=== PATIENT | female | born 1990 | race Caucasian/White ===

== ENCOUNTER 2023-03-01 07:35 | Inpatient (IN) ==
[2023-03-01] MEDS ORDERED: LIDOCAINE 1% LOCAL 20 ML VIAL INFIL PRN (07:55)
[2023-03-01] MEDS ORDERED: OXYTOCIN 30 UNITS/NSS 30 UNITS/500 ML BAG IV PRN (07:55)
--- NOTE | 2023-03-01 07:58 | History & Physical Report ---
"Date of Service March 01, 2023 Assessment & Plan (1) Encounter for induction of labor: Plan: Admit to L&D pitocin arom when appropriate monitor tracing, currently cat 1 Admission and Anticipated Discharge Date Admission Date: March 01, 2023 History of Present Illness Chief Complaint: IOL Primary Care Provider: Karie Abdi DO 32 yo at 40w3d admitted for IOL for post dates. +fm, +ctx, -VB/VD Denies ANGEL, CP, SOB, N/V/D, LE pain. GBS neg, RH- Allergies Allergy/AdvReac Type Severity Reaction Status Date / Time No Known Allergies Allergy Verified 02/21/23 16:10 Home Medications Medication Instructions Recorded Confirmed Type vits no.129-ferrous fum 1 tab PO DAILY 07/09/21 02/21/23 History 27 mg iron-folic acid 800 mcg tablet ( One Daily) famotidine [Pepcid] PO 12/16/21 02/21/23 History Patient History Medical History (Updated 03/01/23 @ 08:03 by Kane Jackman DO) Anxiety HPV (human papilloma virus) infection Miscarriage Screening for STD (sexually transmitted disease) Encounter for routine gynecological examination Counseling for initiation of control method Surgical History H/O tooth extraction Family History Grandfather (Paternal) Prostate cancer Diabetes Kidney disease Anemia Denies family history of Ovarian cancer Myocardial infarction Breast cancer Colorectal cancer Social History (Updated 07/17/22 @ 15:25 by Heidi Holloway, SAMANTHA) Smoking Status: Former smoker Age Started Using Tobacco: 17; Age Quit Using Tobacco: 24; Cigarettes Per Day: 3-4; Second Hand Exposure: No; Do You Dip or Chew Tobacco: No; Tobacco Cessation Education Requested by Patient: No Hx Alcohol Use: No Hx Substance Use: No Preferred Language: [place] Communication Ability: Effective Visual Impairment: No Limitations Hearing Ability: Normal Sr. 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 Skin: warm, dry, intact HEENT: NC/AT, anicteric sclera, conjunctiva without injection, moist mucus membranes Heart: +S1/S2, regular, no m/r/g Lungs: equal air entry bilaterally, no rales/rhonchi/wheezes Abd: +BS, soft, NT/ND, gravid uterus Cervical: fingertip|80|-2| Ext: warm, no clubbing/cyanosis or edema Neuro: speech intact, no facial droop, moving all extremities on command. : FHR baseline 135, moderate variability, accelerations present, decelerations absent Resident Activity Tracking Resident Involvement: Resident Care Provided Care Provided: Adult Hospital Medicine"
[2023-03-01 08:21] LABS: Hematocrit (blood only) 37.6 % (37.0-47.0); Hemoglobin 13.1 g/dl (12.0-16.0); Mean Corpuscular Hemoglobin 29.4 pg (25.0-34.0); Mean Corpuscular Hgb Conc 34.8 g/dL (32.0-36.0); Mean Corpuscular Volume 84.5 fL (80.0-100.0); Mean Platelet Volume 10.4 fL (9.4-12.4); Platelet Count 203 K/uL (130-400); RDW Standard Deviation 42.8 fL (36.4-46.3); Red Blood Count 4.45 M/uL (4.20-5.40); White Blood Count 8.81 K/ul (4.8-10.8)
[2023-03-01] MEDS: OXYTOCIN 30 UNITS/NSS 30 UNITS/500 ML BAG IV PRN (08:58)
[2023-03-01] MEDS: LACTATED RINGER'S 1,000 ML IV PRN ×3 (08:58→20:03)
--- NOTE | 2023-03-01 09:02 | Procedure Note ---
Procedure Note Date of Service March 01, 2023 Note monitoring was used to ensure reassuring status. The patient was verbally consented for placement of a howe for cervical ripening, with discussion of risks, benefits and alternatives. All her questions were answered. Her legs were placed in lithotomy position. A lubricated, gloved hand was used to examine the cervix. A stylet was lubricated and inserted into a howe catheter to give it stiffness, and the howe catheter was then advanced along my fingers until it reached the external cervical os. The howe was then fed forward off of the stylet, which was itself never moved beyond the external os, such that the soft catheter advanced into the uterine cavity outside of the amnion until the balloon was definitely above the internal cervical os. The balloon was then inflated using sterile water to 35cc volume. Gentle traction was used to seat the balloon downward against the internal cervical os. My hand and the stylet were removed from the vagina, and the howe was secured to the patient's leg with a standard howe holding sticker. There was no significant bleeding or leakage of fluid. The heart tones remained reassuring after this process, which the patient tolerated well. Coding
[2023-03-01] MEDS ORDERED: fentaNYL citrate PF 100 MCG/2 ML VIAL ONE (16:44)
[2023-03-01] MEDS ORDERED: fentANYL 2 MCG/ML BUPIVacaine 0.125%-NSS 100ML BAG ONE (16:44)
[2023-03-01] MEDS ORDERED: SODIUM CHLORIDE 0.9% PF INJ 10 ML VIAL ONE (16:44)
[2023-03-01] MEDS ORDERED: ePHEDrine sulfate 50 MG/ML AMP ONE (16:44)
[2023-03-01] MEDS ORDERED: BUPIVACAINE 0.25% PF 30 ML VIAL ONE (16:45)
[2023-03-01] MEDS ORDERED: LIDOCAINE 2%/EPINEPHRINE 1:200,000 20 ML PF ONE (16:45)
--- NOTE | 2023-03-01 16:55 | Anesthesiology Consultation ---
Date of Service March 01, 2023 Assessment & Plan Chart Review Chart Review: Acceptable Risk for Surgery, Patient NOT seen in Pre Admission Testing and Acceptable Risk for Labor Epidural Consults Requested none ASA ASA2 Proposed Anesthesia Anesthesia Type: Labor Epidural and CSE History Height/Weight Height: 5 ft 1 in Weight: 87.997 kg Allergies Allergy/AdvReac Type Severity Reaction Status Date / Time No Known Allergies Allergy Verified 02/21/23 16:10 Medications Home Medications Medication Instructions Recorded Confirmed Last Taken vits no.129-ferrous fum 1 tab PO DAILY 07/09/21 02/21/23 07/09/21 27 mg iron-folic acid 800 mcg tablet ( One Daily) famotidine [Pepcid] PO 12/16/21 02/21/23 Unknown Active Medications Generic Name Dose Route Start Last Admin Trade Name Freq PRN Reason Stop Dose Admin Oxytocin 30 units in 500 mls @ 12 mls/hr 03/01/23 07:55 03/01/23 14:00 Pitocin 30 Units/Nss IV 03/03/23 07:54 0.72 units/hr .Q24H PRN 12 mls/hr Labor Induction/Augmentation Titration Protocol 0.72 UNITS/HR Lactated Ringer's 1,000 mls @ 125 mls/hr 03/01/23 07:55 03/01/23 16:42 Lr IV 03/03/23 07:54 999 mls/hr .Q8H PRN Administration L&D Protocol Protocol Past Medical History Medical History Anxiety HPV (human papilloma virus) infection Miscarriage Screening for STD (sexually transmitted disease) Encounter for routine gynecological examination Counseling for initiation of control method obesity gerd Exercise / Class Metabolic Activity II 4-5 Yardwork/Stairs/Walk up hill Past Family History Family History Grandfather (Paternal) Prostate cancer Diabetes Kidney disease Anemia Denies family history of Ovarian cancer Myocardial infarction Breast cancer Colorectal cancer Past Surgical History Surgical History H/O tooth extraction [place] teeth - 2007 Past Anesthesia History No Hx of Anesthesia Complications and No Family Hx of Anesthesia Complications History of PONV No Hx of PONV and No Hx of Motion Sickness Social History Smoking Status: Former smoker tobacco type: cigarettes Smoking cigarettes per day: 3-4 Do You Dip or Chew Tobacco: No Hx Alcohol Use: No Alcohol type: wine Hx Substance Use: No Physical Exam Vital Signs Last Vital Signs Temp 36.4 C L 03/01/23 14:45 Pulse 91 H 03/01/23 16:05 Resp 18 03/01/23 12:00 BP 159/89 H 03/01/23 16:05 Testing Laboratory Results 03/01/23 08:03 Blood Type O Negative 03/01/23 08:03 Antibody Screen NEGATIVE 03/01/23 08:03
[2023-03-01] MEDS ORDERED: PROMETHAZINE HCL 25 MG in SODIUM CHLORIDE 0.9% 50 ML IV PRN (17:38)
[2023-03-01] MEDS ORDERED: fentaNYL citrate PF 100 MCG/2 ML VIAL EPI PRN (17:38)
[2023-03-01] MEDS ORDERED: NALOXONE HCL 1 MG in SODIUM CHLORIDE 0.9% 1,000 ML IV PRN (17:38)
[2023-03-01] MEDS ORDERED: SODIUM CHLORIDE 0.9% PF INJ 10 ML VIAL EPI PRN (17:38)
[2023-03-01] MEDS ORDERED: fentaNYL citrate PF 100 MCG/2 ML VIAL EPI STA (17:38)
[2023-03-01] MEDS ORDERED: BUPIVACAINE 0.25% PF 30 ML VIAL EPI STA (17:38)
[2023-03-01] MEDS ORDERED: NALOXONE HCL 0.4 MG/1 ML VIAL/CARP IV PRN (17:38)
[2023-03-01] MEDS ORDERED: ePHEDrine sulfate 50 MG/ML AMP IV PRN (17:38)
[2023-03-01] MEDS ORDERED: BUPIVACAINE 0.25% PF 30 ML VIAL EPI PRN (17:38)
[2023-03-01] MEDS ORDERED: ROPIVACAINE 0.5% PF 5 MG/ML 20 ML VIAL EPI PRN (17:38)
[2023-03-01] MEDS ORDERED: SODIUM CHLORIDE 0.9% PF INJ 10 ML VIAL EPI STA (17:38)
[2023-03-01] MEDS ORDERED: LIDOCAINE 2%/EPINEPHRINE 1:200,000 20 ML PF EPI STA (17:38)
[2023-03-01] MEDS ORDERED: NALBUPHINE HCL 5 MG in SYRINGE 0 ML IV PRN (17:38)
[2023-03-01] MEDS ORDERED: LIDOCAINE 2% MPF LOCAL 5 ML VIAL EPI PRN (17:38)
[2023-03-01] MEDS ORDERED: diphenhydrAMINE 50 MG/ML VIAL IV PRN (17:38)
[2023-03-01] MEDS: ONDANSETRON INJ 2 MG/ML 2 ML VIAL IV PRN (21:34)
[2023-03-02] MEDS: fentANYL 2 MCG/ML BUPIVacaine 0.125%-NSS 100ML BAG EPI PRN ×2 (00:14→08:10)
[2023-03-02] MEDS: LACTATED RINGER'S 1,000 ML IV PRN ×2 (04:15→09:52)
--- NOTE | 2023-03-02 06:36 | Labor Progress Brief Note ---
Date of Service March 02, 2023 Subjective Starting to feel pressure intermittently / with contractions Assessment & Plan Admission and Anticipated Discharge Date Admission Date: March 01, 2023 Physical Exam Genitourinary: 9 (swollen a bit anteriorly, thin coach wirer iorly; can reduce either one manually but the other "pops forward" at the same time, so cannot force complete dilation)/100/+1 LOF clear FHT Cat 1 [place] Q2min Results & Data Vital Signs (Past 12 Hours) Vital Signs Temp Pulse Resp BP Pulse Ox O2 Del Method 03/02/23 06:31 121 H 128/80 03/02/23 06:30 130 H 98 03/02/23 06:25 119 H 96 03/02/23 06:20 103 H 96 03/02/23 06:16 106 H 121/74 03/02/23 06:15 103 H 98 03/02/23 06:10 110 H 98 03/02/23 06:05 116 H 98 03/02/23 06:01 110 H 125/78 03/02/23 06:00 97.5 F L 111 H 18 98 03/02/23 05:55 108 H 98 03/02/23 05:50 118 H 98 03/02/23 05:47 100 H 125/75 03/02/23 05:45 107 H 98 03/02/23 05:40 129 H 98 03/02/23 05:35 99 H 98 03/02/23 05:31 106 H 120/74 03/02/23 05:30 111 H 18 98 03/02/23 05:25 107 H 98 03/02/23 05:20 111 H 99 03/02/23 05:16 122 H 132/81 03/02/23 05:15 102 H 96 03/02/23 05:10 105 H 96 03/02/23 05:05 104 H 96 03/02/23 05:01 109 H 126/74 03/02/23 05:00 107 H 16 96 03/02/23 04:55 102 H 96 03/02/23 04:50 101 H 97 03/02/23 04:46 100 H 116/72 03/02/23 04:45 103 H 97 03/02/23 04:40 102 H 97 03/02/23 04:35 102 H 97 03/02/23 04:31 103 H 128/75 03/02/23 04:30 105 H 18 97 03/02/23 04:25 98 H 96 03/02/23 04:20 109 H 97 03/02/23 04:16 113 H 117/68 03/02/23 04:15 111 H 98 03/02/23 04:10 115 H 96 03/02/23 04:05 98.8 F 100 H 96 03/02/23 04:01 102 H 113/59 L 03/02/23 04:00 110 H 20 98 03/02/23 03:55 102 H 98 03/02/23 03:50 115 H 96 03/02/23 03:48 110 H 94 03/02/23 03:46 108 H 116/66 03/02/23 03:45 111 H 95 03/02/23 03:40 107 H 96 03/02/23 03:35 113 H 96 03/02/23 03:32 106 H 119/68 03/02/23 03:30 104 H 16 95 03/02/23 03:26 106 H 94 03/02/23 03:25 105 H 94 03/02/23 03:21 106 H 94 03/02/23 03:20 109 H 95 03/02/23 03:16 107 H 118/61 03/02/23 03:15 105 H 95 03/02/23 03:10 108 H 94 03/02/23 03:09 105 H 94 03/02/23 03:05 107 H 94 03/02/23 03:04 105 H 94 03/02/23 03:01 102 H 119/68 03/02/23 03:00 102 H 94 03/02/23 02:58 104 H 94 03/02/23 02:55 107 H 94 03/02/23 02:51 107 H 94 03/02/23 02:50 103 H 95 03/02/23 02:46 99 H 115/69 03/02/23 02:45 101 H 94 03/02/23 02:44 104 H 94 03/02/23 02:40 101 H 95 03/02/23 02:39 104 H 94 03/02/23 02:35 103 H 95 03/02/23 02:33 103 H 94 03/02/23 02:32 100 H 118/74 03/02/23 02:30 104 H 95 03/02/23 02:25 104 H 96 03/02/23 02:20 100 H 96 03/02/23 02:17 101 H 115/74 03/02/23 02:15 100 H 95 03/02/23 02:13 103 H 94 03/02/23 02:10 99 H 96 03/02/23 02:05 105 H 96 03/02/23 02:01 113 H 135/77 03/02/23 02:00 98.8 F 115 H 20 97 03/02/23 01:55 94 H 95 03/02/23 01:50 89 95 03/02/23 01:46 93 H 116/61 03/02/23 01:45 93 H 95 03/02/23 01:40 91 H 95 03/02/23 01:38 90 94 03/02/23 01:35 87 96 03/02/23 01:32 89 113/61 03/02/23 01:30 93 H 18 95 03/02/23 01:28 92 H 94 03/02/23 01:25 92 H 95 03/02/23 01:20 92 H 96 03/02/23 01:18 88 116/69 03/02/23 01:15 86 96 03/02/23 01:10 86 97 03/02/23 01:05 94 H 95 03/02/23 01:02 94 H 94 03/02/23 01:01 94 H 124/58 L 03/02/23 01:00 94 H 16 95 03/02/23 00:55 99 H 96 03/02/23 00:50 92 H 96 03/02/23 00:47 92 H 120/65 03/02/23 00:45 91 H 95 03/02/23 00:40 95 H 95 03/02/23 00:35 90 97 03/02/23 00:31 90 119/66 03/02/23 00:30 94 H 16 96 03/02/23 00:25 96 H 96 03/02/23 00:20 90 96 03/02/23 00:16 94 H 112/69 03/02/23 00:15 92 H 96 03/02/23 00:10 94 H 96 03/02/23 00:05 97 H 96 03/02/23 00:04 98.6 F 03/02/23 00:02 96 H 123/73 03/02/23 00:00 115 H 18 97 03/01/23 23:55 113 H 96 03/01/23 23:50 109 H 96 03/01/23 23:46 112 H 128/84 03/01/23 23:45 108 H 96 03/01/23 23:40 110 H 96 03/01/23 23:35 114 H 96 03/01/23 23:31 104 H 123/76 03/01/23 23:30 107 H 16 97 03/01/23 23:25 100 H 98 03/01/23 23:20 124 H 98 03/01/23 23:18 121 H 137/83 03/01/23 23:16 132 H 94 03/01/23 23:15 120 H 99 03/01/23 23:10 97 H 97 03/01/23 23:05 98 H 97 03/01/23 23:01 98 H 127/76 03/01/23 23:00 99 H 16 94 03/01/23 22:55 103 H 95 03/01/23 22:50 98 H 97 03/01/23 22:47 101 H 132/75 03/01/23 22:45 95 H 97 03/01/23 22:40 122 H 98 03/01/23 22:35 97 H 96 03/01/23 22:31 103 H 120/75 03/01/23 22:30 93 H 18 96 03/01/23 22:25 98.4 F 98 H 96 03/01/23 22:20 97 H 96 03/01/23 22:17 93 H 126/76 03/01/23 22:15 105 H 96 03/01/23 22:10 106 H 97 03/01/23 22:05 94 H 96 03/01/23 22:02 96 H 135/69 03/01/23 22:00 92 H 18 97 03/01/23 21:55 111 H 96 03/01/23 21:50 109 H 96 03/01/23 21:47 108 H 125/75 03/01/23 21:45 97 H 97 03/01/23 21:40 122 H 97 03/01/23 21:35 123 H 97 03/01/23 21:32 121 H 140/83 03/01/23 21:30 119 H 20 99 03/01/23 21:25 111 H 100 11/23/23 21:20 96 H 99 03/01/23 21:16 82 127/61 03/01/23 21:15 88 96 03/01/23 21:10 87 97 03/01/23 21:05 82 97 03/01/23 21:01 92 H 119/64 03/01/23 21:00 89 18 96 03/01/23 20:55 83 97 03/01/23 20:50 80 97 03/01/23 20:47 86 122/63 03/01/23 20:45 79 97 03/01/23 20:40 98 H 98 03/01/23 20:39 98.4 F 03/01/23 20:35 94 H 98 03/01/23 20:32 93 H 155/91 H 03/01/23 20:30 94 H 18 98 03/01/23 20:25 91 H 98 03/01/23 20:20 97 H 98 03/01/23 20:18 100 H 135/80 03/01/23 20:15 90 99 03/01/23 20:10 95 H 98 03/01/23 20:05 93 H 99 03/01/23 20:02 83 145/78 H 03/01/23 20:00 94 H 18 99 03/01/23 19:55 105 H 98 03/01/23 19:50 84 99 03/01/23 19:48 84 151/84 H 03/01/23 19:45 84 98 03/01/23 19:40 81 97 03/01/23 19:35 84 98 03/01/23 19:32 85 136/91 03/01/23 19:30 75 16 98 03/01/23 19:25 74 98 03/01/23 19:20 105 H 99 03/01/23 19:17 78 143/91 H 03/01/23 19:15 87 96 03/01/23 19:10 Room Air 03/01/23 19:10 97.9 F 77 18 97 03/01/23 19:05 76 98 03/01/23 19:01 86 137/90 03/01/23 19:00 86 98 03/01/23 18:55 93 H 99 03/01/23 18:50 80 97 03/01/23 18:47 76 116/70 03/01/23 18:45 74 98 03/01/23 18:40 77 98 Coding Level of Care Code None
--- NOTE | 2023-03-02 09:37 | Labor Progress Brief Note ---
Date of Service March 02, 2023 Subjective comfortable Assessment & Plan (1) Encounter for induction of labor: Plan begin second stage, fetus reassuring. anticipate . Admission and Anticipated Discharge Date Admission Date: March 01, 2023 Physical Exam Physical Exam: cx--c/c/+1 toco--q2-3min efm--130s wtih mod variability, accels to 150s, rare variable. Results & Data Vital Signs (Past 12 Hours) Vital Signs Temp Pulse Resp BP Pulse Ox 03/02/23 09:33 114 H 94 03/02/23 09:32 100 H 114/66 03/02/23 09:30 101 H 95 03/02/23 09:25 99 H 95 03/02/23 09:20 102 H 95 03/02/23 09:19 102 H 94 03/02/23 09:17 99 H 114/67 03/02/23 09:15 102 H 95 03/02/23 09:10 99 H 95 03/02/23 09:05 106 H 96 03/02/23 09:02 108 H 116/69 03/02/23 09:01 37.3 C 03/02/23 09:00 105 H 96 03/02/23 08:55 116 H 98 03/02/23 08:50 103 H 95 03/02/23 08:47 103 H 121/66 03/02/23 08:45 104 H 96 03/02/23 08:40 110 H 97 03/02/23 08:35 102 H 95 03/02/23 08:31 104 H 126/70 03/02/23 08:30 107 H 16 96 03/02/23 08:25 104 H 95 03/02/23 08:20 105 H 97 03/02/23 08:17 101 H 128/71 03/02/23 08:15 108 H 96 03/02/23 08:10 110 H 96 03/02/23 08:05 112 H 95 03/02/23 08:02 97 H 106/55 L 03/02/23 08:00 95 H 20 95 03/02/23 07:55 102 H 96 03/02/23 07:54 108 H 94 03/02/23 07:50 116 H 96 03/02/23 07:47 108 H 133/79 03/02/23 07:45 108 H 96 03/02/23 07:41 103 H 94 03/02/23 07:40 104 H 95 03/02/23 07:35 104 H 96 03/02/23 07:31 102 H 124/69 03/02/23 07:30 104 H 20 95 03/02/23 07:25 104 H 95 03/02/23 07:20 104 H 95 03/02/23 07:16 108 H 132/75 03/02/23 07:15 37.0 C 18 03/02/23 07:15 109 H 96 03/02/23 07:10 110 H 95 03/02/23 07:06 105 H 127/75 03/02/23 07:05 116 H 95 03/02/23 07:01 110 H 114/72 03/02/23 07:00 108 H 18 95 03/02/23 06:55 103 H 95 03/02/23 06:50 109 H 95 03/02/23 06:46 106 H 128/80 03/02/23 06:45 112 H 95 03/02/23 06:40 129 H 96 03/02/23 06:35 108 H 96 03/02/23 06:31 121 H 128/80 03/02/23 06:30 130 H 20 98 03/02/23 06:25 119 H 96 03/02/23 06:20 103 H 96 03/02/23 06:16 106 H 121/74 03/02/23 06:15 103 H 98 03/02/23 06:10 110 H 98 03/02/23 06:05 116 H 98 03/02/23 06:01 110 H 125/78 03/02/23 06:00 36.4 C L 111 H 18 98 03/02/23 05:55 108 H 98 03/02/23 05:50 118 H 98 03/02/23 05:47 100 H 125/75 03/02/23 05:45 107 H 98 03/02/23 05:40 129 H 98 03/02/23 05:35 99 H 98 03/02/23 05:31 106 H 120/74 03/02/23 05:30 111 H 18 98 03/02/23 05:25 107 H 98 03/02/23 05:20 111 H 99 03/02/23 05:16 122 H 132/81 03/02/23 05:15 102 H 96 03/02/23 05:10 105 H 96 03/02/23 05:05 104 H 96 03/02/23 05:01 109 H 126/74 03/02/23 05:00 107 H 16 96 03/02/23 04:55 102 H 96 03/02/23 04:50 101 H 97 03/02/23 04:46 100 H 116/72 03/02/23 04:45 103 H 97 03/02/23 04:40 102 H 97 03/02/23 04:35 102 H 97 03/02/23 04:31 103 H 128/75 03/02/23 04:30 105 H 18 97 03/02/23 04:25 98 H 96 03/02/23 04:20 109 H 97 03/02/23 04:16 113 H 117/68 03/02/23 04:15 111 H 98 03/02/23 04:10 115 H 96 03/02/23 04:05 37.1 C 100 H 96 03/02/23 04:01 102 H 113/59 L 03/02/23 04:00 110 H 20 98 03/02/23 03:55 102 H 98 03/02/23 03:50 115 H 96 03/02/23 03:48 110 H 94 03/02/23 03:46 108 H 116/66 03/02/23 03:45 111 H 95 03/02/23 03:40 107 H 96 03/02/23 03:35 113 H 96 03/02/23 03:32 106 H 119/68 03/02/23 03:30 104 H 16 95 03/02/23 03:26 106 H 94 03/02/23 03:25 105 H 94 03/02/23 03:21 106 H 94 03/02/23 03:20 109 H 95 03/02/23 03:16 107 H 118/61 03/02/23 03:15 105 H 95 03/02/23 03:10 108 H 94 03/02/23 03:09 105 H 94 03/02/23 03:05 107 H 94 03/02/23 03:04 105 H 94 03/02/23 03:01 102 H 119/68 03/02/23 03:00 102 H 94 03/02/23 02:58 104 H 94 03/02/23 02:55 107 H 94 03/02/23 02:51 107 H 94 03/02/23 02:50 103 H 95 03/02/23 02:46 99 H 115/69 03/02/23 02:45 101 H 94 03/02/23 02:44 104 H 94 03/02/23 02:40 101 H 95 03/02/23 02:39 104 H 94 03/02/23 02:35 103 H 95 03/02/23 02:33 103 H 94 03/02/23 02:32 100 H 118/74 03/02/23 02:30 104 H 95 03/02/23 02:25 104 H 96 03/02/23 02:20 100 H 96 03/02/23 02:17 101 H 115/74 03/02/23 02:15 100 H 95 03/02/23 02:13 103 H 94 03/02/23 02:10 99 H 96 03/02/23 02:05 105 H 96 03/02/23 02:01 113 H 135/77 03/02/23 02:00 37.1 C 115 H 20 97 03/02/23 01:55 94 H 95 03/02/23 01:50 89 95 03/02/23 01:46 93 H 116/61 03/02/23 01:45 93 H 95 03/02/23 01:40 91 H 95 03/02/23 01:38 90 94 03/02/23 01:35 87 96 03/02/23 01:32 89 113/61 03/02/23 01:30 93 H 18 95 03/02/23 01:28 92 H 94 03/02/23 01:25 92 H 95 03/02/23 01:20 92 H 96 03/02/23 01:18 88 116/69 03/02/23 01:15 86 96 03/02/23 01:10 86 97 03/02/23 01:05 94 H 95 03/02/23 01:02 94 H 94 03/02/23 01:01 94 H 124/58 L 03/02/23 01:00 94 H 16 95 03/02/23 00:55 99 H 96 03/02/23 00:50 92 H 96 03/02/23 00:47 92 H 120/65 03/02/23 00:45 91 H 95 03/02/23 00:40 95 H 95 03/02/23 00:35 90 97 03/02/23 00:31 90 119/66 03/02/23 00:30 94 H 16 96 03/02/23 00:25 96 H 96 03/02/23 00:20 90 96 03/02/23 00:16 94 H 112/69 03/02/23 00:15 92 H 96 03/02/23 00:10 94 H 96 03/02/23 00:05 97 H 96 03/02/23 00:04 37.0 C 03/02/23 00:02 96 H 123/73 03/02/23 00:00 115 H 18 97 03/01/23 23:55 113 H 96 03/01/23 23:50 109 H 96 03/01/23 23:46 112 H 128/84 03/01/23 23:45 108 H 96 03/01/23 23:40 110 H 96 03/01/23 23:35 114 H 96 03/01/23 23:31 104 H 123/76 03/01/23 23:30 107 H 16 97 03/01/23 23:25 100 H 98 03/01/23 23:20 124 H 98 03/01/23 23:18 121 H 137/83 03/01/23 23:16 132 H 94 03/01/23 23:15 120 H 99 03/01/23 23:10 97 H 97 03/01/23 23:05 98 H 97 03/01/23 23:01 98 H 127/76 03/01/23 23:00 99 H 16 94 03/01/23 22:55 103 H 95 03/01/23 22:50 98 H 97 03/01/23 22:47 101 H 132/75 03/01/23 22:45 95 H 97 03/01/23 22:40 122 H 98 03/01/23 22:35 97 H 96 03/01/23 22:31 103 H 120/75 03/01/23 22:30 93 H 18 96 03/01/23 22:25 36.9 C 98 H 96 03/01/23 22:20 97 H 96 03/01/23 22:17 93 H 126/76 03/01/23 22:15 105 H 96 03/01/23 22:10 106 H 97 03/01/23 22:05 94 H 96 03/01/23 22:02 96 H 135/69 03/01/23 22:00 92 H 18 97 03/01/23 21:55 111 H 96 03/01/23 21:50 109 H 96 03/01/23 21:47 108 H 125/75 03/01/23 21:45 97 H 97 03/01/23 21:40 122 H 97 Coding Level of Care Code None Diagnoses Encounter for induction of labor Z34.90
[2023-03-02] MEDS: ONDANSETRON INJ 2 MG/ML 2 ML VIAL IV PRN (09:52)
[2023-03-02] MEDS ORDERED: METHYLERGONOVINE MALEATE 0.2 MG/ML AMP ONE (11:23)
[2023-03-02] MEDS ORDERED: miSOPROStoL 200 MCG TAB ONE (11:25)
[2023-03-02] MEDS: OXYTOCIN 30 UNITS/NSS 30 UNITS/500 ML BAG IV PRN (11:30)
--- NOTE | 2023-03-02 11:37 | Delivery Summary ---
Vaginal Delivery Summary Date of Service March 02, 2023 Vaginal Delivery Summary and 2nd Degree LAC Pre-operative Diagnosis: at 40 weeks postdates induction Post-operative Diagnosis: same Procedure: howe bulb for cervical ripening pitocin epidural second degree laceration and repair EBL: 500cc Anesthesia: epidural Procedure: The patient pushed for about 90 minutes to deliver a viable female infant in quyen position. The nose and mouth were bulb suctioned on the perineum, a large gush of meconium was noted after delivery of the head and the rest of the was then delivered without difficulty. The baby delivered through a loose nuchal cord. The baby was vigorous. The nose and mouth were again bulb suctioned and the was placed in the maternal abdomen for drying and attention. Cord was clamped and cut at 30 secs of life. Cord blood and segment obtained. Placenta delivered spontaneous, intact with a three vessel cord. Cervix/sulci/rectum were intact. A second degree perineal laceration was repaired in the normal standard fashion. Hemostasis obtained with dilute pitocin and fundal massage, IM methergine and rectal cytotec. Apgars were 7/9. Mother and baby doing well at the end of the delivery. [facility] [place] Vaginal Delivery Charge Delivery Type Details: and 2nd Degree LAC
[2023-03-02] MEDS ORDERED: METHYLERGONOVINE MALEATE 0.2 MG/ML AMP IM ONE (11:40)
[2023-03-02] MEDS ORDERED: DIPHTHERIA/TETANUS/PERTUSSIS Vaccine (Tdap, Age 7+yrs) 0.5mL SYR/VL IM ONE (11:40)
[2023-03-02] MEDS ORDERED: oxyCODONE/ACETAMINOPHEN 5mg/325mg TAB PO PRN (11:40)
[2023-03-02] MEDS ORDERED: OXYTOCIN 30 UNITS/NSS 30 UNITS/500 ML BAG IV PRN (11:40)
[2023-03-02] MEDS ORDERED: ACETAMINOPHEN 325 MG TAB PO PRN (11:40)
[2023-03-02] MEDS ORDERED: HYDROCORTISONE ACETATE 25 MG SUPP PR PRN (11:40)
[2023-03-02] MEDS ORDERED: miSOPROStoL 200 MCG TAB PR ONE (11:40)
[2023-03-02] MEDS ORDERED: bisacodyL 10 MG SUPP PR PRN (11:40)
[2023-03-02] MEDS ORDERED: BENZOCAINE 20% SPRY 85 APPLN/85 GM CAN EXT PRN (11:40)
--- NOTE | 2023-03-02 13:02 | Anesthesia Procedure Note ---
Date of Service March 02, 2023 Anesthesia Post Epidural Note Vital Signs Vital Signs: Temp Pulse Resp BP Pulse Ox O2 Del Method 37.3 C 96 H 16 161/81 H 95 Room Air 03/02/23 09:01 03/02/23 13:00 03/02/23 12:15 03/02/23 13:00 03/02/23 11:30 03/01/23 19:10 Pain Intensity Rectal: Pain Intensity: 4 Notes Mental Status: alert / awake / arousable Nausea / Vomiting: adequately controlled Pain: adequately controlled Airway Patency, RR, SpO2: stable & adequate BP & HR: stable & adequate Hydration State: stable & adequate Neuraxial Anesthesia: was administered and sensory block is resolving Anesthetic Complications: no major complications apparent Epidural: Removed without complications and With tip intact
[2023-03-02] MEDS: IBUPROFEN 600 MG TAB PO PRN ×2 (17:25→20:55)
[2023-03-02 17:33] LABS: Hematocrit (blood only) 35.2 % (37.0-47.0); Hemoglobin 12.2 g/dl (12.0-16.0); Mean Corpuscular Hemoglobin 30.2 pg (25.0-34.0); Mean Corpuscular Hgb Conc 34.7 g/dL (32.0-36.0); Mean Corpuscular Volume 87.1 fL (80.0-100.0); Mean Platelet Volume 10.8 fL (9.4-12.4); Platelet Count 199 K/uL (130-400); RDW Coefficient of Variation 14.4 % (11.5-14.5); RDW Standard Deviation 45.2 fL (36.4-46.3); Red Blood Count 4.04 M/uL (4.20-5.40); White Blood Count 24.67 K/ul (4.8-10.8)
[2023-03-02 17:50] LABS: Albumin Globulin Ratio 1.1 (0.9-2); BUN Creatinine Ratio 11.9 (10-20); Bilirubin,Total 0.5 mg/dl (0.2-1.0); Calcium 8.9 mg/dl (8.6-10.3); Creatinine Clr Calc Pharmacy 68.4 ml/min; Est GFR (African American) 70.2 ml/min; Est GFR (Non-African American) 60.5 ml/min; Globulin 2.7 gm/dl (2.5-4.0); Potassium 3.9 mmol/L (3.5-5.1); Total Protein 5.7 gm/dl (6.0-8.3)
--- NOTE | 2023-03-02 20:24 | Obstetrical Progress Note ---
Date of Service March 02, 2023 Assessment & Plan (1) Elevated blood pressure reading: Plan Patient has some elevated blood pressures since delivery. No s/s of pet and labs are wnl. Will continue to monitor blood pressures closely. Plan to start antihypertensives if pressures remain >140/90. Patient expresses understanding. Subjective ctsp because of mildly elevated blood pressures. She notes some uterine cramping but otherwise feeling well. no s/s of pet. Of note, patient had some mildly elevated pressures on admission which resolved with epidural. Pressures have been 150s/161 / 80s-98. Physical Exam Constitutional WD/WN, vitals as above Cardiovascular Extremities: + edema (tr); no calf tenderness Gastrointestinal (Abdomen) soft, nt, no ruq pain Neurologic patellar DTR's 2+ bilat, sensation intact (no clonus ) Results & Data Vital Signs (Past 12 Hours) Vital Signs Temp Pulse Pulse Pulse Resp BP BP 03/02/23 19:03 36.5 C 92 H 20 134/90 03/02/23 17:00 144/98 H 03/02/23 15:35 37.5 C 92 H 18 151/97 H 03/02/23 13:26 87 158/84 H 03/02/23 13:15 37.3 C 20 03/02/23 13:15 104 H 152/78 H 03/02/23 13:00 96 H 161/81 H 03/02/23 12:45 16 03/02/23 12:45 93 H 160/83 H 03/02/23 12:30 97 H 161/86 H 03/02/23 12:15 16 03/02/23 12:15 87 158/81 H 03/02/23 12:07 93 H 159/86 H 03/02/23 12:03 16 03/02/23 12:03 99 H 154/90 H 03/02/23 11:45 18 03/02/23 11:45 109 H 143/82 H 03/02/23 11:30 03/02/23 11:30 119 H 03/02/23 11:30 124 H 03/02/23 11:29 16 03/02/23 11:29 111 H 134/67 03/02/23 11:25 03/02/23 11:25 112 H 03/02/23 11:25 115 H 134/62 03/02/23 11:20 120 H 03/02/23 11:16 130 H 144/84 H 03/02/23 11:15 133 H 03/02/23 11:10 20 03/02/23 11:10 122 H 20 03/02/23 11:05 124 H 03/02/23 11:04 114 H 134/73 03/02/23 11:00 03/02/23 11:00 129 H 03/02/23 11:00 124 H 03/02/23 10:55 119 H 20 03/02/23 10:54 126 H 03/02/23 10:50 129 H 03/02/23 10:46 118 H 128/65 03/02/23 10:45 125 H 03/02/23 10:44 129 H 03/02/23 10:40 123 H 22 03/02/23 10:37 137 H 03/02/23 10:35 121 H 03/02/23 10:32 152 H 03/02/23 10:31 125 H 127/63 03/02/23 10:30 143 H 03/02/23 10:25 22 03/02/23 10:25 22 03/02/23 10:25 03/02/23 10:25 145 H 03/02/23 10:25 117 H 03/02/23 10:20 131 H 03/02/23 10:17 127 H 128/78 03/02/23 10:15 121 H 03/02/23 10:14 117 H 03/02/23 10:10 123 H 03/02/23 10:09 117 H 03/02/23 10:05 120 H 03/02/23 10:03 123 H 03/02/23 10:02 127 H 130/77 03/02/23 10:00 123 H 03/02/23 09:57 126 H 03/02/23 09:55 120 H 03/02/23 09:51 127 H 03/02/23 09:50 115 H 03/02/23 09:48 127 H 130/87 03/02/23 09:45 141 H 03/02/23 09:40 130 H 03/02/23 09:35 116 H 03/02/23 09:33 114 H 03/02/23 09:32 100 H 114/66 03/02/23 09:30 101 H 20 03/02/23 09:25 99 H 03/02/23 09:20 102 H 03/02/23 09:19 102 H 03/02/23 09:17 99 H 114/67 03/02/23 09:15 102 H 03/02/23 09:10 99 H 03/02/23 09:05 106 H 03/02/23 09:02 108 H 116/69 03/02/23 09:01 37.3 C 03/02/23 09:00 105 H 03/02/23 08:55 116 H 03/02/23 08:50 103 H 03/02/23 08:47 103 H 121/66 03/02/23 08:45 104 H 03/02/23 08:40 110 H 03/02/23 08:35 102 H 03/02/23 08:31 104 H 126/70 03/02/23 08:30 107 H 16 03/02/23 08:25 104 H Pulse Ox O2 Del Method 03/02/23 19:03 95 Room Air 03/02/23 17:00 03/02/23 15:35 Room Air 03/02/23 13:26 03/02/23 13:15 03/02/23 13:15 03/02/23 13:00 03/02/23 12:45 03/02/23 12:45 03/02/23 12:30 03/02/23 12:15 03/02/23 12:15 03/02/23 12:07 03/02/23 12:03 03/02/23 12:03 03/02/23 11:45 03/02/23 11:45 03/02/23 11:30 95 03/02/23 11:30 03/02/23 11:30 94 03/02/23 11:29 03/02/23 11:29 03/02/23 11:25 96 03/02/23 11:25 03/02/23 11:25 94 03/02/23 11:20 96 03/02/23 11:16 03/02/23 11:15 94 03/02/23 11:10 03/02/23 11:10 94 03/02/23 11:05 95 03/02/23 11:04 03/02/23 11:00 96 03/02/23 11:00 03/02/23 11:00 94 03/02/23 10:55 95 03/02/23 10:54 92 03/02/23 10:50 96 03/02/23 10:46 03/02/23 10:45 95 03/02/23 10:44 94 03/02/23 10:40 96 03/02/23 10:37 91 03/02/23 10:35 94 03/02/23 10:32 94 03/02/23 10:31 03/02/23 10:30 96 03/02/23 10:25 03/02/23 10:25 03/02/23 10:25 97 03/02/23 10:25 03/02/23 10:25 88 L 03/02/23 10:20 96 03/02/23 10:17 03/02/23 10:15 96 03/02/23 10:14 89 L 03/02/23 10:10 97 03/02/23 10:09 93 03/02/23 10:05 92 03/02/23 10:03 80 L 03/02/23 10:02 03/02/23 10:00 97 03/02/23 09:57 91 03/02/23 09:55 92 03/02/23 09:51 91 03/02/23 09:50 96 03/02/23 09:48 03/02/23 09:45 96 03/02/23 09:40 97 03/02/23 09:35 98 03/02/23 09:33 94 03/02/23 09:32 03/02/23 09:30 95 03/02/23 09:25 95 03/02/23 09:20 95 03/02/23 09:19 94 03/02/23 09:17 03/02/23 09:15 95 03/02/23 09:10 95 03/02/23 09:05 96 03/02/23 09:02 03/02/23 09:01 03/02/23 09:00 96 03/02/23 08:55 98 03/02/23 08:50 95 03/02/23 08:47 03/02/23 08:45 96 03/02/23 08:40 97 03/02/23 08:35 95 03/02/23 08:31 03/02/23 08:30 96 03/02/23 08:25 95
[2023-03-02] MEDS: DOCUSATE SODIUM 100 MG CAP PO SCH (20:56)
[2023-03-03] MEDS: IBUPROFEN 600 MG TAB PO PRN ×4 (04:37→23:58)
--- NOTE | 2023-03-03 07:48 | Obstetrical Progress Note ---
Date of Service March 03, 2023 Assessment & Plan (1) Encounter for assessment: visit type: exam and care immediately after delivery Qualified Code(s): Z39.0 - Encounter for care and examination of mother immed iately after delivery (2) Elevated blood pressure reading: Plan Doing well. Routine care. bps much better since last evening, will monitor through day. May want d/c later today. Day #:: 1 Subjective Ambulation: ambulating normally Voiding: no voiding problems Passing Gas:: Yes Diet Tolerance:: regular diet Lochia:: Small Feeding Type:: breast feeding Feels well. no s/s of pet. Last few pressures have been better. Physical Exam Constitutional WD/WN, vitals as above Cardiovascular Extremities: + edema (tr); no calf tenderness Gastrointestinal (Abdomen) soft, nt, nd ff/nt 1 below u Results & Data Vital Signs (Past 12 Hours) Vital Signs Temp Pulse Resp BP BP Pulse Ox O2 Del Method 03/03/23 04:27 36.5 C 72 18 111/74 97 Room Air 03/02/23 23:25 36.7 C 78 18 135/84 96 Room Air
[2023-03-03] MEDS: PRENATAL VITAMIN 1 TAB PO SCH (08:47)
[2023-03-03] MEDS: DOCUSATE SODIUM 100 MG CAP PO SCH ×2 (08:47→20:09)
[2023-03-03 09:45] LABS: Hematocrit (blood only) 32.8 % (37.0-47.0); Hemoglobin 11.3 g/dl (12.0-16.0)
[2023-03-03] MEDS ORDERED: bisacodyL 5 MG TABEC PO SCH (20:00)
[2023-03-04] MEDS: IBUPROFEN 600 MG TAB PO PRN (05:45)
--- NOTE | 2023-03-04 07:32 | Obstetrical Progress Note ---
Date of Service March 04, 2023 Assessment & Plan (1) Encounter for assessment: PPD 2, no ext pain. home visit type: exam and care immediately after delivery Qualified Code(s): Z39.0 - Encounter for care and examination of mother immediately after delivery Subjective Ambulation: ambulating normally Voiding: no voiding problems Passing Gas:: Yes Diet Tolerance:: regular diet Lochia:: Small Physical Exam Constitutional WD/WN, vitals as above well developed and well nourished Respiratory normal respiratory effort, lungs clear to auscultation normal respiratory effort Cardiovascular RRR, no murmur, no edema Gastrointestinal (Abdomen) normal bowel sounds, soft, nontender, no hepatosplenomegaly Results & Data Vital Signs (Past 12 Hours) Vital Signs Temp Pulse Resp BP BP Pulse Ox O2 Del Method 03/03/23 23:56 97.7 F 94 H 20 120/79 98 Room Air 03/03/23 19:52 97.7 F 86 18 130/90 98 Room Air
[2023-03-04] MEDS: DOCUSATE SODIUM 100 MG CAP PO SCH (08:55)
[2023-03-04] MEDS: PRENATAL VITAMIN 1 TAB PO SCH (08:55)
== END 2023-03-04 11:00 | disposition home or self-care (01) | DRG 807 ==
LOC: 4S1 07:35 → 4E2 03-02 13:45